=== PATIENT | male | born 1965 | race African-American/Black ===

== ENCOUNTER 2025-05-14 01:59 | Emergency (ER) | payer OTHER, SELFPAY ==
[2025-05-14 02:06] VITALS: BP 163/92; PULSE 68; TEMP 36.8; O2SAT 100; BMI 22.0
--- NOTE | 2025-05-14 02:19 | ED.GENADUL1 ---
HPI HPI - General Adult General Stated complaint: EAR Time Seen by Provider: 05/14/25 02:09 Source: patient Mode of arrival: walk-in Limitations: no limitations History of Present Illness HPI narrative: patient presents complaining of itching of his right ear. also describes chronic disc disease and nerve pain of his C-spine. States he use to take Neurontin but ran out. History of substance abuse including alcohol and methamphetamines. States [facility] is [facility] the [facility] center. Came here because of the itching of his right ear and is also requesting Neurontin for his nerve pain. no weakness, nausea or fever Related Data Home Medications ?Medication ?Instructions ?Recorded ?Confirmed insulin glargine 100 unit/mL 20 unit subcut QPM 05/14/25 05/14/25 subcutaneous solution (Lantus U-100 Insulin) insulin lispro 100 unit/mL 1 sliding scale dose subcut 05/14/25 05/14/25 subcutaneous pen (Humalog KwikPen USEASDIRECTD (U-100) Insulin) Allergies Allergy/AdvReac Type Severity Reaction Status Date / Time No Known Drug Allergies Allergy Verified 05/14/25 02:11 Opioid HPI Opioid Management Most Recent Opioid Data: Last Pain Scale 10 Today, 02:06 Review of Systems ROS Status of ROS 10 or more systems reviewed and unremarkable except as noted in history and below PFSH PFSH Social History Little interest or pleasure in doing things: not at all Feeling down, depressed, or hopeless: not at all Exam Constitutional Vital Signs, click to edit/add: Last Vital Signs Temp 98.3 F 05/14/25 02:06 Pulse 68 05/14/25 02:06 Resp 18 05/14/25 02:06 BP 163/92 H 05/14/25 02:06 Pulse Ox 100 05/14/25 02:06 O2 Del Method Room Air 05/14/25 02:06 Common normals: no apparent distress, oriented x3, no limitations, healthy appearing and well nourished [facility] Common normals: normocephalic and head/scalp atraumatic Ear images:  1. areas of dry excoriations with exposure of underlying dermis. No swelling Eye Common normals: EOMs intact bilaterally and conjunctivae normal Respiratory Common normals: normal respiratory effort, no retractions, no use of accessory muscles and clear to auscultation bilaterally Cardio Common normals: regular rate, regular rhythm, S1 normal heart sound and S2 normal heart sound Extremity Common normals: normal to inspection and full ROM Neuro Common normals: oriented x3, CN's II-XII intact bilaterally, moves all extremities and no focal motor deficits Psych Appearance: grossly normal Course Vital Signs Vital signs: Vital Signs Temperature 98.3 F 05/14/25 02:06 Pulse Rate 68 05/14/25 02:06 Respiratory Rate 18 05/14/25 02:06 Blood Pressure 163/92 H 05/14/25 02:06 Pulse Oximetry 100 05/14/25 02:06 Oxygen Delivery Method Room Air 05/14/25 02:06 Temperature 98.3 F 05/14/25 02:06 Pulse Rate 68 05/14/25 02:06 Respiratory Rate 18 05/14/25 02:06 Blood Pressure 163/92 H 05/14/25 02:06 Pulse Oximetry 100 05/14/25 02:06 Oxygen Delivery Method Room Air 05/14/25 02:06 Medical Decision Making MDM Narrative Medical decision making narrative: presents complaining of intense itching of his right external ear. He has scratched skin off the ear. the areas of excoriations are dry and do not appear infected. He is also requesting a prescription of Neurontin for his chronic nerfe pain. No complaint or findings or extremity weakness. Right ear canal and TM are normal given a prescription for triamcinolone 0.1% cream and Neurontin 100 tid 10d Discharge Plan Discharge Clinical Impression: Neurotic excoriations, Chronic pain Patient Disposition: Home, Self-Care Prescriptions / Home Meds: No Action insulin lispro [Humalog KwikPen Insulin] 100 unit/mL insulin pen 1 sliding scale dose subcut USEASDIRECTD insulin glargine [Lantus U-100 Insulin] 100 unit/mL solution 20 unit subcut QPM Print Language: Occitan Instructions: Chronic Pain (ED) Referrals: Physician,Non-Staff, MD [Primary Care Provider] - 1 week
== END 2025-05-14 02:30 | disposition home or self-care (01) ==
PROVIDERS: Emergency Provider Internal Medicine
DX: L98.1 Factitial dermatitis (principal); G89.29 Other chronic pain; F10.11 Alcohol abuse, in remission; F15.11 Other stimulant abuse, in remission; M79.2 Neuralgia and neuritis, unspecified
CPT/HCPCS: 99283